=== PATIENT | male | born 1955 | race Caucasian/White ===

== ENCOUNTER 2021-02-14 08:33 | Day surgery (SDC) | payer BC ==
[~2021-02-14] VITALS: Ht 177.8 cm; Wt 89.9 kg
[~2021-02-14 08:33] MED LIST: LIPITOR 10MG10 MG PO; TOPROL XL 25MG25 MG PO
[2021-02-14] MEDS ORDERED: FLOMAX 0.40.4 MG/CAP PO (13:39)
[2021-02-14] MEDS ORDERED: CRESTOR5 MG PO (13:40)
[2021-02-14] MEDS ORDERED: PROSCAR 5MG5 MG PO (13:40)
[2021-02-14] MEDS ORDERED: CENTRUM MEN'S (13:41)
[2021-02-14] MEDS ORDERED: OMEGA-3 1000 MG1 CAP PO (13:41)
[2021-02-14] MEDS ORDERED: PROBIOTIC BLEN1 EACH PO (13:42)
[2021-02-14] MEDS ORDERED: ASPIRIN E.C. 8181 MG PO (13:43)
--- NOTE | 2021-02-14 13:50 | NUR ---
PATIENT AND AMBULATED INTO SDC UNIT WITH STEADY GAIT. PATIENT IS ALERT AND ORIENTED X 3. HISTORY DONE YESTERDAY PER PHONE. CONSENT EXPLAINED AND PATIENT SIGNED. ASSESSMENT COMPLETED. LUNGS CTA. HEART S1S2 AND REGULAR. BOWEL SOUNDS HEARD. PULSES FELT. SEE PROCESS INTERVENTION FOR IV.
[2021-02-14 14:02] VITALS: BP 115/87; PULSE 64; TEMP 98.5
[2021-02-14 16:30] VITALS: BP 131/67; PULSE 79; TEMP 98
--- NOTE | 2021-02-14 16:30 | NUR ---
PATIENT TRANSPORTED PER CART FROM PACU TO BAY 2 ACCOMPANIED BY FARMWORKER ANIMAL. PATIENT TALKS WITH STAFF AND . MONITORS APPLIED. VSS ON ROOM AIR. PATIENT AMBULATES FROM BAY 2 TO RESTROOM WITH STEADY GAIT AND 2 STAND BY ASSIST.
[2021-02-14 17:00] VITALS: BP 130/26; PULSE 70
--- NOTE | 2021-02-14 17:00 | NUR ---
PATIENT HAS BEEN IN RESTROOM SITTING ON TOILET. PATIENT STATES HE IS UNABLE TO VOID AND FEEL LIKE ALOT OF PRESSURE AND SPASMS. PATIENT AMBULATED BACK TO BAY 2. MONITOR REAPPLIED. VSS ON ROOM AIR. PATIENT GIVEN TOAST AND SPRITE TO DRINK.
--- NOTE | 2021-02-14 17:05 | NUR ---
VSS ON ROOM AIR. PATIENT DID HAVE SLIGHT BLOODY DRAINAGE FROM PENIS. PATIENT TOLERATES FOOD AND DRINK WITHOUT NAUSESA. DR LACEY IN OR AND NURSE SPEAKS WITH DR LACEY REGARDING PATIENT SYMPTOMS. RECEIVED ORDER FOR LEVSIN SL. PATIENT AMBULATED BACK TO TOILET AND SITS. PATIENT STATES SITTING ON TOILET IMPROVES SYMPTOM. 1718 PATIENT GIVEN LEVSIN SL ORDERED. PATIENT CONTINUES SITTING ON TOILET.
[2021-02-14 17:15] VITALS: BP 115/68; PULSE 73
[2021-02-14 17:48] VITALS: PULSE 77
--- NOTE | 2021-02-14 18:07 | NUR ---
1740 Pt has urinated very little, and that was "blood" tinged. Dr. Cotto consulted, and he comes to visit with the pt and pt's . Dr. Cotto is fine with pt going home in current condition. Pt has no other complications, and all vital signs are stable. Pt's understands as well. 1805 Discharge instructions given to pt and pt's . All questions answered to their satisfaction. Handed to them are a thank you card and discharge information. 1807 Pt transferred out of hospital via wheelchair and this RN assist with pt's accompanying. Pt transferred to private vehicle driven by pt's .
== END 2021-02-14 18:07 | disposition home or self-care (01) ==
LOC: SDCO 08:33
DX: N35.919 Unspecified urethral stricture, male, unspecified site (principal); N20.0 Calculus of kidney; I10 Essential (primary) hypertension; E78.5 Hyperlipidemia, unspecified; E66.9 Obesity, unspecified; G47.33 Obstructive sleep apnea (adult) (pediatric); Z99.89 Dependence on other enabling machines and devices; Z86.73 Personal history of transient ischemic attack (TIA), and cerebral infarction without residual deficits; Z79.82 Long term (current) use of aspirin; Z79.899 Other long term (current) drug therapy
CPT/HCPCS: C1769; C1894; C2617; J0690; J1100; J1885; J2405; J2704; J3010; J7120; Q9967

== ENCOUNTER 2021-02-28 13:12 | Day surgery (SDC) | payer BC ==
[~2021-02-28] VITALS: Ht 165.1 cm; Wt 90.9 kg
[~2021-02-28 13:12] MED LIST changes: +ASPIRIN E.C. 8181 MG PO; +CENTRUM MEN'S; +CRESTOR5 MG PO; +FLOMAX 0.40.4 MG/CAP PO; +OMEGA-3 1000 MG1 CAP PO; +PROBIOTIC BLEN1 EACH PO; +PROSCAR 5MG5 MG PO
[2021-02-28] MEDS ORDERED: TOPROL XL 50MG50 MG PO (13:34)
[2021-02-28 13:54] VITALS: BP 134/72; PULSE 55; TEMP 97.8
[2021-02-28] MEDS ORDERED: PERCOCET 325 MG1 TA2 PO (16:32)
[2021-02-28 16:55] VITALS: BP 134/72; PULSE 80; TEMP 97.3
--- NOTE | 2021-02-28 16:55 | NUR ---
The patient arrived back to [facility] from the recovery room at this time. The patient reports feeling a strong urge to void and stood at the side of his bed and used the urinal. The patient voided a moderate amount of red urine at this time. Post operative vital signs were started at this time. The patient agrees to try some toast and water at this time. The patient's is going to cotton picker his pain medication prescription so he is ready for discharge.
[2021-02-28 17:10] VITALS: BP 120/84; PULSE 78
--- NOTE | 2021-02-28 17:10 | NUR ---
The patient has finsihed his toast and water and appeared to tolerate both well. Vital signs appear stable. The patient has voided again.
[2021-02-28 17:16] VITALS: TEMP 98.5
[2021-02-28 17:25] VITALS: BP 122/70; PULSE 78
--- NOTE | 2021-02-28 17:25 | NUR ---
The patient has finished his food and drink and appeared to tolerate both well. Post operative vital signs appear stable. The patient denies any nausea or pain at this time.
[2021-02-28 17:40] VITALS: BP 127/66; PULSE 71
--- NOTE | 2021-02-28 17:40 | NUR ---
The patient has voided another time and tolerated it well with minimal discomfort. The patient is waiting for his to return so he can be discharged home.
--- NOTE | 2021-02-28 17:55 | NUR ---
Discharge instructions were reviewed with the patient and his . They both verbalized understanding and have no questions for the nurse at this time. The patient's IV to his left hand was removed and a pressure dressing was applied to the site. The nurse instructed the patient to get dressed and notify the staff when he is ready to be escorted out.
--- NOTE | 2021-02-28 18:10 | NUR ---
The patient was escorted out via wheelchair to a private vehicle by BRONWYN Satna. The patient's belongings and discharge paperwork were sent with him. The patient's is present to drive him home.
== END 2021-02-28 18:10 | disposition home or self-care (01) ==
LOC: SDCO 13:12
DX: N20.0 Calculus of kidney (principal); I10 Essential (primary) hypertension; E78.5 Hyperlipidemia, unspecified; E66.9 Obesity, unspecified; G47.33 Obstructive sleep apnea (adult) (pediatric); Z99.89 Dependence on other enabling machines and devices; Z86.73 Personal history of transient ischemic attack (TIA), and cerebral infarction without residual deficits; Z79.899 Other long term (current) drug therapy; Z79.82 Long term (current) use of aspirin; Z79.891 Long term (current) use of opiate analgesic
CPT/HCPCS: C1769; J0690; J1100; J1940; J2405; J2704; J3010; J7120

== ENCOUNTER 2023-09-29 08:07 | Day surgery (SDC) | payer MEDICARE, OTHER ==
[2023-09-29] VITALS (13 sets, daily range): BP systolic 104–144; BP diastolic 56–84; PULSE 57–70; TEMP 97–97.5
[~2023-09-29] VITALS: Ht 165.1 cm; Wt 89.4 kg
[~2023-09-29 08:07] MED LIST changes: +Famotidine 20 MG TAB PO SCH; +Glycopyrrolate 0.2 MG/ML 1 ML VIAL ONE; +LR 1,000 ML IV SCH; +Lidocaine PF 2% (20 MG/ML) 5 ML VIAL ONE; +Midazolam 2 MG/2 ML VIAL ONE; +NS 10 ML IV ONE; +Ondansetron 4 MG/2 ML VIAL ONE; +PERCOCET 325 MG1 TA2 PO; +TOPROL XL 50MG50 MG PO; +Tranexamic Acid 1,000 MG/10 ML VIAL ONE; +dexAMETHasone 10 MG/ML VIAL ONE
[2023-09-29] MEDS ORDERED: CIALIS5 MG PO (09:31)
[2023-09-29] MEDS ORDERED: PROTONIX 40MG T40 MG PO (09:32)
[2023-09-29] MEDS ORDERED: VESICARE10 MG PO (09:32)
[2023-09-29] MEDS ORDERED: HYDROmorphone 1 MG/1 ML SYRINGE [PACU/SDC ONLY] IV PRN (12:30)
[2023-09-29] MEDS ORDERED: fentaNYL 50 MCG/ML 1 ML SYRINGE/VIAL [PACU/SDC ONLY] IV PRN (12:30)
[2023-09-29] MEDS ORDERED: Ondansetron 4 MG/2 ML VIAL IV PRN ×2 (12:30→14:30)
[2023-09-29] MEDS ORDERED: droPERidol 2.5 MG/ML 2 ML VIAL IV PRN (12:30)
[2023-09-29] MEDS ORDERED: hydrALAZINE 20 MG/ML 1 ML VIAL IV PRN (12:30)
[2023-09-29] MEDS ORDERED: Ketorolac 30 MG/ML VIAL IM ONE (12:44)
[2023-09-29] MEDS ORDERED: Morphine 4 MG/ML VIAL IM ONE (12:44)
[2023-09-29] MEDS ORDERED: Thrombin Human (Recombinant) 5,000 UNITS VIAL TP ONE (12:45)
[2023-09-29] MEDS ORDERED: Magnes Hydrox (MOM) 80 MG/ML 30 ML CUP PO PRN (14:30)
[2023-09-29] MEDS ORDERED: Acetaminophen 500 MG TAB PO SCH (14:30)
[2023-09-29] MEDS ORDERED: Bisacodyl 5 MG TAB PO PRN (14:30)
[2023-09-29] MEDS ORDERED: Mag/Al Hydrox/Simeth Susp 30 ML CUP PO PRN (14:30)
[2023-09-29] MEDS ORDERED: oxyCODONE 5 MG TAB PO PRN (14:30)
[2023-09-29] MEDS ORDERED: Acetaminophen 500 MG TAB PO PRN (14:30)
[2023-09-29] MEDS ORDERED: NS 1,000 ML IV SCH (14:30)
[2023-09-29] MEDS ORDERED: Ketorolac 15 MG/ML VIAL IV SCH (14:30)
[2023-09-29] MEDS ORDERED: Naloxone 0.4 MG/ML VIAL IV PRN (14:30)
[2023-09-29] MEDS ORDERED: Morphine 4 MG/ML VIAL IV PRN (14:30)
[2023-09-29] MEDS ORDERED: Sennosides/Docusate 8.6-50 MG TAB PO SCH (14:31)
[2023-09-29] MEDS ORDERED: Magnes Hydrox (MOM) 80 MG/ML 30 ML CUP PO SCH (14:31)
[2023-09-29] MEDS ORDERED: Ascorbic Acid 500 MG TAB PO SCH (14:31)
--- NOTE | 2023-09-29 15:24 | NUR ---
Patient resting in bed. at bedside. Numbness still present. Vss on O2. Left knee dressing clean and dry intact. Hemovac to compression. Scds and Pal to LLE. IVF. Will monitor
--- NOTE | 2023-09-29 16:37 | NUR ---
Numbness and tingling still present to BLE. Vss on room air. Left knee dressing CDI. Hemovac to compression. Will monitor
[2023-09-29] MEDS ORDERED: ceFAZolin 2 G in Water For Injection,Sterile 20 ML IV SCH (18:30)
--- NOTE | 2023-09-29 18:47 | NUR ---
Patient sitting up in chair for dinner. He did well. Walker and gaitbelt used. Does still report numbness to buttocks. Left knee dressing CDI. Hemovac to compression. INT. Bedside report to Jennifer to resume cares
[2023-09-29] MEDS ORDERED: Patient's Own Medication Item PO SCH (21:00)
[2023-09-29] MEDS ORDERED: Rosuvastatin 5 MG **** subs to Atorvastatin 10 MG PO SCH (21:00)
--- NOTE | 2023-09-29 21:00 | NUR ---
PT IS A&O X4 SITTING UP IN CHAIR. VSS. AMBULATED AROUND ROOM WITH SBA. DRESSING TO LEFT KNEE IS CDI & HEMOVAC TO COMPRESSION WITH BLOODY OUTPUT. PT RATES HIS PAIN 2-3/10, GAVE SCHEDULED TYLENOL & TORADOL PER APR & ICEPACK TO LEFT KNEE. BLE TEDS & SCDS ON. INT TO LEFT HAND PATENT. PT DENYING FURTHER NEEDS. CALL LIGHT IN REACH
[2023-09-30] VITALS (8 sets, daily range): BP systolic 111–146; BP diastolic 62–69; PULSE 72–90; TEMP 97.9–98.5
--- NOTE | 2023-09-30 05:53 | NUR ---
pt laying in bed watching tv. denying pain at this time, pain was controlled throughout the night with scheduled tylenol & toradol. ble scds on. pt denying further needs. call light in reach
[2023-09-30] MEDS ORDERED: ASPIRIN 81M81 MG/TA2 PO (06:46)
[2023-09-30] MEDS ORDERED: CEPHALEXIN500 M1 PO (06:46)
[2023-09-30] MEDS ORDERED: NORCO 325 MG-51 TAB PO (06:46)
[2023-09-30] MEDS ORDERED: ULTRAM 50MG TAB50 MG PO (06:47)
--- NOTE | 2023-09-30 09:12 | NUR ---
Quality Control Coordinator met with patient to discuss discharge planning. Patient lives in [place], [place] with his , Ramesh (ph#[phone]) [address] Dr. Heard for primary care. Patient gets his medications from [facility] in [place] and uses a CPAP at home. Patient also advised he has a walker for recovery. Patient advised he is independent with ADLS including driving. Patient has outpatient PT set up at [facility]. Discharge Plan: Home
--- NOTE | 2023-09-30 12:19 | NUR ---
Pt assessment completed earlier this morning. This morning, this pt was sitting on the side of his bed with his legs dangling. PT was in the room with him. He tolerated PT well. He complains of little pain at this time. His dressing was changed- the inscision looks well approximated and debra are intact. SHALONDA bandage reapplied. The banadage is not needed, however, the pt requested it be re-wrapped with the SHALONDA bandage for support. His call light is within reach, all other needs are met.
--- NOTE | 2023-09-30 12:49 | NUR ---
PATIENT DISCHARGING HOME WITH WHO IS NOW HERE. GAVE DISCHARGE INSTRUCTIONS, PRESCRIPTIONS, AND DISCUSSED F/U APT. ANSWERED QUESTIONS/CONCERNS. RN DC'D IV ALREADY AND CHANGED LLE DSG FOR DISCHARGE. PATIENT ORDERED LUNCH AND PLANS TO DISCHARGE AFTER EATTING.
--- NOTE | 2023-09-30 13:20 | NUR ---
PATIENT NOW DISCHARGING TO PERSONAL VEHICLE VIA WC WITH PATIENT. PATIENT DISCHARGED.
--- NOTE | 2023-09-30 14:34 | NUR ---
D: Church Business Administrator stopped by room on rounds. A: Pt was resting and content, waiting for his discharge. P: Church Business Administrator informed pt that if he needed anything to let his nurse know. Church Business Administrator will follow up as needed.
[2023-10-03] MEDS ORDERED: Celecoxib 200 MG CAP PO SCH (21:00)
== END 2023-09-30 13:20 | disposition home or self-care (01) ==
LOC: SDCO 08:07 → SURG 14:10 → SDCO 09-30 13:20
DX: M17.12 Unilateral primary osteoarthritis, left knee (principal)
CPT/HCPCS: OP; A9284; C1713; C1776; J0690; J1100; J1580; J1885; J2250; J2270; J2405; J2704; J2795; J7120